=== PATIENT | female | born 1945 | race Caucasian/White ===

== ENCOUNTER → 2020-04-14 10:19 | Outpatient (BNVA) | payer OTHER, SELFPAY | PROVIDERS: PCP Family Medicine; Visit Provider Family Medicine | DX: E89.0 Postprocedural hypothyroidism (principal); I10 Essential (primary) hypertension; F32.9 Major depressive disorder, single episode, unspecified; M19.90 Unspecified osteoarthritis, unspecified site; G31.84 Mild cognitive impairment of uncertain or unknown etiology; Z13.220 Encounter for screening for lipoid disorders | CPT/HCPCS: 80053; 80061; 84443 ==

== ENCOUNTER → 2020-09-01 11:30 | Outpatient (BNVA) | payer OTHER, SELFPAY | PROVIDERS: PCP Family Medicine; Visit Provider Emergency Medicine | DX: E89.0 Postprocedural hypothyroidism (principal); R53.83 Other fatigue; R05 Cough; R52 Pain, unspecified | CPT/HCPCS: 84443; 87400; 87635 ==

== ENCOUNTER → 2020-11-23 09:46 | Outpatient (BNVA) | payer MEDICARE, SELFPAY | PROVIDERS: PCP Family Medicine; Visit Provider Family Medicine | DX: F32.9 Major depressive disorder, single episode, unspecified (principal); I10 Essential (primary) hypertension; J44.9 Chronic obstructive pulmonary disease, unspecified; E89.0 Postprocedural hypothyroidism; M19.90 Unspecified osteoarthritis, unspecified site; E66.9 Obesity, unspecified; Z71.89 Other specified counseling | CPT/HCPCS: 84439; 84443; 84481 ==

== ENCOUNTER → 2021-05-24 09:41 | Outpatient (BNVA) | payer MEDICARE, SELFPAY | PROVIDERS: PCP Family Medicine; Visit Provider Family Medicine | DX: F32.9 Major depressive disorder, single episode, unspecified (principal); I10 Essential (primary) hypertension; G47.00 Insomnia, unspecified; E89.0 Postprocedural hypothyroidism; Z23 Encounter for immunization; G47.01 Insomnia due to medical condition | CPT/HCPCS: 80053; 80061; 84439; 84443; 84481 ==

== ENCOUNTER → 2022-02-06 14:35 | Outpatient (BNVA) | payer MEDICARE, SELFPAY | PROVIDERS: PCP Family Medicine; Visit Provider Family Medicine | DX: F32.9 Major depressive disorder, single episode, unspecified (principal); I10 Essential (primary) hypertension; G47.00 Insomnia, unspecified; E89.0 Postprocedural hypothyroidism; G47.01 Insomnia due to medical condition; F43.9 Reaction to severe stress, unspecified | CPT/HCPCS: 80053; 84439; 84443; 84481 ==

== ENCOUNTER → 2022-05-10 10:19 | Outpatient (BNVA) | payer MEDICARE, SELFPAY | PROVIDERS: PCP Family Medicine; Visit Provider Family Medicine | DX: N39.0 Urinary tract infection, site not specified (principal); J44.9 Chronic obstructive pulmonary disease, unspecified; G47.01 Insomnia due to medical condition; R39.9 Unspecified symptoms and signs involving the genitourinary system | CPT/HCPCS: 81000 ==

== ENCOUNTER → 2022-07-09 10:59 | Outpatient (BNVA) | payer MEDICARE, SELFPAY | PROVIDERS: PCP Family Medicine; Visit Provider Family Medicine | DX: I10 Essential (primary) hypertension (principal); E89.0 Postprocedural hypothyroidism; N39.0 Urinary tract infection, site not specified | CPT/HCPCS: 80053; 80061; 81000; 84443 ==

== ENCOUNTER → 2023-04-15 14:49 | Outpatient (BNVA) | payer MEDICARE, SELFPAY | PROVIDERS: PCP Family Medicine; Visit Provider Family Medicine | DX: E89.0 Postprocedural hypothyroidism; I10 Essential (primary) hypertension | CPT/HCPCS: 80053; 80061; 84439; 84443; 84481 ==

== ENCOUNTER → 2024-04-07 14:36 | Outpatient (BNVA) | payer MEDICARE, SELFPAY | PROVIDERS: PCP Family Medicine; Visit Provider Nurse Practitioner Family | DX: I10 Essential (primary) hypertension (principal); G31.84 Mild cognitive impairment of uncertain or unknown etiology; E89.0 Postprocedural hypothyroidism; E03.9 Hypothyroidism, unspecified; R53.83 Other fatigue | CPT/HCPCS: 80053; 80061; 82607; 82746; 84439; 84443; 84481; 85025 ==

== ENCOUNTER 2024-07-01 07:46 | Inpatient (IN) | payer MEDICARE, SELFPAY ==
[2024-07-01] VITALS (18 sets, daily range): BP systolic 115–165; BP diastolic 64–112; PULSE 60–82; RESP 14–24; TEMP 36.3–36.8; O2SAT 88–96; BMI 35.2; BMI 33.5
--- NOTE | 2024-07-01 08:02 | ED_ITS ---
HPI - General Adult 2 General: Chief complaint: General Medical Stated complaint: Tremors/Nausea Time Seen by Provider: 07/01/24 07:52 History of Present Illness: 79-year-old female who presents to the e mergency room with complaint of tremor shortness of breath nausea and vomiting. She is extremely anxious. She has a history of mild dementia. She states when she went to bed last night she was feeling fine when she got up this morning she felt very unsteady on her feet. The original call for service to EMS was for shortness of breath. Patient admits shortness of breath denies chest pain denies abdominal pain. She does have a history of some dementia and a history of atrial fibrillation although is her rate is well-controlled. Patient states she felt fine last night at 9:00 when she went to bed. Associated symptoms: Deny chest pain, dyspnea or rash Related Data Previous Rx's Medication Instructions Recorded naproxen sodium 220 mg tablet 220 mg PO BID PRN pain 30 days #60 06/25/22 (Aleve) tabs arm brace (Wrist Brace) #2 ea 04/15/23 albuterol sulfate 90 mcg/actuation 2 puff inhalation Q6H PRN 03/23/24 aerosol inhaler shortness of breath or wheezing #8.5 grams amitriptyline 10 mg tablet 10 mg PO .at bedtime PRN insomnia 03/23/24 30 days #30 tabs budesonide-formoterol HFA 160 2 puff inhalation DAILY #10.2 grams 03/23/24 mcg-4.5 mcg/actuation aerosol inhaler (Symbicort) citalopram 40 mg tablet 40 mg PO DAILY 90 days #90 tabs 03/23/24 hydrochlorothiazide 12.5 mg tablet 12.5 mg PO QAM 90 days #90 tabs 03/23/24 levothyroxine 175 mcg capsule 175 mcg PO QDAY 90 days #90 caps 03/23/24 lisinopril 20 mg tablet 20 mg PO DAILY 90 days #90 tabs 03/23/24 Allergies Allergy/AdvReac Type Severity Reaction Status Date / Time No Known Allergies Allergy Verified 04/07/24 14:23 Review of Systems 2 Const: Denies: fever(s) or chills Card: Denies: chest pain Resp: Denies: dyspnea GI: Denies: abdominal pain : Denies: dysuria, urinary frequency or urinary urgency Musc: Denies: neck pain or back pain Skin/Breast: Denies: rash PFSH ED 2 PFSH: Medical History (Updated 07/01/24 @ 10:45 by Reginald Meneses DO) Arthritis Hypothyroidism Hx benign mass removed years ago. Essential hypertension Depression, controlled Surgical History H/O tubal ligation H/O thyroidectomy S/P appendectomy Family History Mother Cancer Social History Smoking and tobacco/nicotine status: never used tobacco/nicotine Quit status (tobacco/nicotine): has quit using Year quit tobacco: 2017 Former quit date comment: Patient had smoked since she was 14. Second hand smoke exposure: No Alcohol intake: never Substance/Drug Use: never Female Reproductive History: Spontaneous abortions: No Physical Exam 2 Const: GENERAL APPEARANCE: cooperative ORIENTATION/CONSCIOUSNESS: Yes awake, Yes oriented to person, Yes oriented to place and Yes oriented to time HENMT: COMMON NORMALS: normocephalic, atraumatic and hearing grossly normal bilaterally HEAD & SCALP: normocephalic and atraumatic Resp: COMMON NORMALS: normal respiratory effort, No retractions, No use of accessory muscles and clear to auscultation bilaterally AUSCULTATION: clear to auscultation bilaterally Cardio: COMMON NORMALS: regular rate, regular rhythm and No murmurs present (Cardio) RATE: regular rate RHYTHM: regular rhythm GI: COMMON NORMALS: Soft to palpation and No hepatosplenomegaly present A USCULTATION: Yes normoactive bowel sounds PALPATION: Yes Soft to palpation, No Tenderness to palpation present (GI), No Guarding due to palpation present (GI) and Yes No hepatosplenomegaly present Extremity: COMMON NORMALS: normal to inspection, capillary refill normal, no clubbing, cyanosis or edema, no calf tenderness and no pedal edema Neuro: SENSORIUM/ORIENTATION: Yes oriented to person, Yes oriented to place and Yes oriented to time Skin: COMMON NORMALS: no rashes or lesions noted GENERAL SKIN EXAM: no rashes or lesions noted Course 2 Vital Signs: Vital signs: Vital Signs Temperature 97.8 F 07/01/24 07:47 Pulse Rate 68 07/01/24 10:05 Respiratory Rate 14 07/01/24 10:05 Blood Pressure 151/75 07/01/24 10:05 Pulse Oximetry 96 07/01/24 10:05 Oxygen Delivery Me thod Nasal Cannula 07/01/24 07:47 Oxygen Flow Rate 2 07/01/24 07:47 MDM - General Adult Medical Decision Making Stroke assessment did initially, if we give her 1 point is that as a dysarthria she only has a single point on her stroke scale. She is hypoxic chest x-ray shows pneumonia will admit for pneumonia no leukocytosis questional was mild bladder infection there is just as many red send squamous. There is +1 leukocyte esterase. I do not think she has had a stroke you think she has pneumonia with hypoxia. Hospitalist will initiate antibiotics. Orders written. Lab Data 07/01/24 08:55 07/01/24 08:55 Radiology Impressions Chest X-Ray 07/01/24 08:03 Impression: 1. Patchy bilateral lower lobe opacities. 2. Atherosclerosis. Head CT 07/01/24 08:03 IMPRESSION: 1. No acute intracranial hemorrhage or edema. 2. Mild atrophy and small vessel disease. 3. Small remote lacunar infarcts in the internal and external capsules, bilateral. Laboratory Results WBC 8.24 10^3/uL (3.29-11.43) 07/01/24 08:55 RBC 5.15 10^6/uL (3.85-5.65) 07/01/24 08:55 Hgb 14.90 g/dL (11.27-16.99) 07/01/24 08:55 Hct 45.8 % (36-47) 07/01/24 08:55 MCV 88.9 fl (85-98) 07/01/24 08:55 MCH 28.9 pg (27-33) 07/01/24 08:55 MCHC 32.5 g/dL (30-55) 07/01/24 08:55 RDW 14.2 % (12.1-15.1) 07/01/24 08:55 Plt Count 218 10^3/cmm (157-399) 07/01/24 08:55 MPV 12.0 fL (7.4-10.4) H 07/01/24 08:55 Neut % (Auto) 72.4 % 07/01/24 08:55 Lymph % (Auto) 15.9 % 07/01/24 08:55 [place] % (Auto) 6.7 % 07/01/24 08:55 Eos % (Auto) 4.0 % 07/01/24 08:55 Baso % (Auto) 0.6 % 07/01/24 08:55 Neut # (Auto) 5.97 10^3/uL (1.8-7.7) 07/01/24 08:55 Lymph # (Auto) 1.3 10^3/uL (0.8-4.8) 07/01/24 08:55 [place] # (Auto) 0.6 10^3/uL (0.2-0.9) 07/01/24 08:55 Eos # (Auto) 0.3 10^3/uL (0.0-0.8) 07/01/24 08:55 Baso # (Auto) 0.1 10^3/uL (0.0-0.1) 07/01/24 08:55 Nucleated RBC % (auto) 0 % 07/01/24 08:55 Nucleated RBCs # 0.0 /100WBC 07/01/24 08:55 Specimen Type Arterial 07/01/24 08:56 Sample Site Radial, left 07/01/24 08:56 ABG pH 7.38 (7.35-7.45) 07/01/24 08:56 ABG pCO2 44.2 mmHg (35-45) 07/01/24 08:56 ABG pO2 75.7 mmHg (80.0-100.0) L 07/01/24 08:56 ABG PO2/FiO2 Ratio 270 07/01/24 08:56 ABG HCO3 26.3 mmol/L (22-26) H 07/01/24 08:56 ABG O2 Saturation 95.7 07/01/24 08:56 ABG Base Excess 0.8 mmol/L (-2.0-2.0) 07/01/24 08:56 Misha Test Pos 07/01/24 08:56 A-a O2 Gradient 9.0 mmHg (5-10) 07/01/24 08:56 Hematocrit 45.1 % (37-47) 07/01/24 08:56 Hgb O2 Saturation 94.6 % (95-100) L 07/01/24 08:56 Carboxyhemoglobin 0.7 %THgb (0.4-20.1) 07/01/24 08:56 Methemoglobin 0.5 % (0.4-1.5) 07/01/24 08:56 Total Hemoglobin 14.7 g/dL (12-16) 07/01/24 08:56 Sodium 138.0 mmol/L (131-143) 07/01/24 08:56 Potassium 4.5 mmol/L (3.5-5.0) 07/01/24 08:56 Glucose 118.0 mg/dL (70-115) H 07/01/24 08:56 Ionized Calcium 1.1 mmol/L (1.1-1.4) 07/01/24 08:56 O2 Delivery Device Nc 07/01/24 08:56 O2 Liters/Min 2.0 % 07/01/24 08:56 FiO2 28.0 % 07/01/24 08:56 Popcorn Candy Maker ID [place] 07/01/24 08:56 Sodium 134 mmol/L (136-145) L 07/01/24 08:55 Potassium 4.6 mmol/L (3.5-5.1) 07/01/24 08:55 Chloride 100 mmol/L (98-107) 07/01/24 08:55 Carbon Dioxide 24 mmol/L (22-29) 07/01/24 08:55 Anion Gap 14.6 (5-19) 07/01/24 08:55 BUN 18 mg/dL (8-23) 07/01/24 08:55 Creatinine 0.6 mg/dL (0.5-0.9) 07/01/24 08:55 GFR Calculation Not Reportable 07/01/24 08:55 Glucose 118 mg/dL (65-115) H 07/01/24 08:55 Calculated Osmolality 281 mOsm/kg (285-295) L 07/01/24 08:55 Lactic Acid 1.6 mmol/L (0.5-2.2) 07/01/24 08:55 Calcium 8.2 mg/dL (8.5-10.5) L 07/01/24 08:55 Magnesium 2.0 mg/dL (1.7-2.3) 07/01/24 08:55 Total Bilirubin 0.2 mg/dL (0.15-1.2) 07/01/24 08:55 AST 14 U/L (0-32) 07/01/24 08:55 ALT 9 U/L (0-33) 07/01/24 08:55 Alkaline Phosphatase 74 U/L (35-105) 07/01/24 08:55 Creatine Kinase 54 U/L (26-192) 07/01/24 08:55 Troponin T Baseline 7 ng/L (0-10) 07/01/24 08:55 NT-Pro-B Natriuret Pep 91 pg/mL (0-450) 07/01/24 08:55 Total Protein 7.2 g/dL (6.6-8.7) 07/01/24 08:55 Albumin 3.9 g/dL (3.5-5.2) 07/01/24 08:55 Globulin 3.3 g/dL (1.3-4.6) 07/01/24 08:55 Urine Color Yellow (Yellow) 07/01/24 08:43 Urine Appearance Cloudy (CLEAR) A 07/01/24 08:43 Urine pH 5.0 (5-7) 07/01/24 08:43 Ur Specific [place] 1.021 (1.005-1.030) 07/01/24 08:43 Urine Protein Negative (Negative) 07/01/24 08:43 Urine Glucose (UA) Negative (Normal) 07/01/24 08:43 Urine Ketones Negative (Negative) 07/01/24 08:43 Urine Blood Negative (Negative) 07/01/24 08:43 Urine Nitrate Negative (Negative) 07/01/24 08:43 Urine Bilirubin Negative (Negative) 07/01/24 08:43 Urine Urobilinogen 1.0 mg/dL (Negative) 07/01/24 08:43 Ur Leukocyte Esterase 1+ (Negative) A 07/01/24 08:43 Urine RBC 6-10 /hpf (0-2) 07/01/24 08:43 Urine WBC 11-20 /hpf (0-5) H 07/01/24 08:43 Ur Squamous Epith Cells 6-10 /hpf (0-5) 07/01/24 08:43 Amorphous Sediment Not Reportable 07/01/24 08:43 Urine Bacteria 1+ /hpf (NONE) H 07/01/24 08:43 Hyaline Casts 0.81 /lpf 07/01/24 08:43 Coronavirus (PCR) Negative (Negative) 07/01/24 08:08 Influenza A (PCR) Negative (Negative) 07/01/24 08:08 Influenza Type B (PCR) Negative (Negative) 07/01/24 08:08 RSV (PCR) Negative (Negative) 07/01/24 08:08 All radiology interpretation(s) finalized by discharge Discharge Plan Discharge Patient Disposition: Admitted As Inpatient Clinical Impression: Pneumonia, Mild dementia Condition: Stable Prescriptions: No Action naproxen sodium [Aleve] 220 mg tablet 220 mg PO BID PRN (Reason: pain) 30 Days Qty: 60 0RF (DME) Wrist Brace Misc See Rx Instructions .Route Qty: 2 0RF Rx Instructions: Right and left wrist brace for carpal tunnel albuterol sulfate 90 mcg/actuation HFA aerosol inhaler 2 puff inhalation Q6H PRN (Reason: shortness of breath or wheezing) Qty: 8.5 5RF amitriptyline 10 mg tablet 10 mg PO .at bedtime PRN (Reason: insomnia) 30 Days Qty: 30 2RF budesonide-formoterol [Symbicort] 160-4.5 mcg/actuation HFA aerosol inhaler 2 puff inhalation DAILY Qty: 10.2 5RF Rx Instructions: rinse mouth out after use 340B citalopram 40 mg tablet 40 mg PO DAILY 90 Days Qty: 90 3RF hydrochlorothiazide 12.5 mg tablet 12.5 mg PO QAM 90 Days Qty: 90 3RF levothyroxine 175 mcg capsule 175 mcg PO QDAY 90 Days Qty: 90 3RF lisinopril 20 mg tablet 20 mg PO DAILY 90 Days Qty: 90 3RF Referrals: Lyn Alvarenga MD [Primary Care Provider] - Coding Level of Care Code ED Pre School Manager for Opal Stephenson NIH stroke score NIHSS Level Of Consciousness - 1a: 0 Level Of Consciousness Questions - 1b: Both Correct Level Of Consciousness Commands - 1c: Both Correct Best Gaze - 2: Normal Visual [place]o - 3: No Visual Loss Facial Palsy - 4: Normal Motor Arm Right - 5: No Drift Motor Arm Left - 5: No Drift Motor Leg Right - 6: No Drift Motor Leg Left - 6: No Drift Limb Ataxia - 7: Absent Sensory - 8: Normal Best Language - 9: No Aphasia Dysarthia - 10: Mild/Moderate Dysarthia Extinction And Inattention - 11: 0 Score Total Score: 1
--- NOTE | 2024-07-01 08:03 | ECG_ITS ---
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 Measurements Intervals [place] Rate: 65 P: 171 OK: 164 QRS: -47 QRSD: 112 T: 64 QT: 389 QTc: 407 Interpretive Statements ECTOPIC ATRIAL RHYTHM LEFT AXIS DEVIATION [QRS AXIS < -30] MODERATE INTRAVENTRICULAR CONDUCTION DELAY [110+ ms QRS DURATION] No previous ECG available for comparison Electronically Signed On 07-02-2024 21:45:52 BEATER ROOM HELPER by Ryan Steele M.D. [email or web address]
--- NOTE | 2024-07-01 08:03 | XR_ITS ---
WS: [id number] Portable AP upright chest, 07/01/2024 Clinical Data: dyspnea/cough Comparison: None. Findings: No nodules, masses or effusions are seen. There are patchy bilateral lower lobe opacities w hich may represent atelectasis, pneumonia and/or effusion. The heart is normal. The pulmonary vascula rity is not increased. No pneumothorax is seen. The aortic arch shows tortuosity. There is osteoarth ritis of both shoulders. Monitor leads are on the chest wall. XR/XR chest 1V portable [id number] Impression: 1. Patchy bilateral lower lobe opacities. 2. Atherosclerosis.
--- NOTE | 2024-07-01 08:03 | CT_ITS ---
WS: [id number] CT HEAD NONCONTRAST HISTORY: Tremor nausea vomiting TECHNIQUE: Contiguous axial imaging performed through the brain. Bone and soft tissue windows. Sagitt al and coronal reformats reviewed. All CT scans at [facility] use at least one of these dose optimization techniques: automated exposure control; mA and/or kV adjustment per patient size (includ es targeted exams where dose is matched to clinical indication); or iterative reconstruction. DLP: 1023.80 mGy.cm COMPARISON: None available. No acute intracranial hemorrhage, midline shift or mass effect. Mild atrophy and small vessel disease. Small bilateral lacunar infarcts in the anterior limb of each internal capsule. Bilateral external capsule remote lacunar infarcts. Ventricles: Normal size with no hydrocephalus. Paranasal sinuses: As visualized are clear. Mastoid air cells: Well pneumatized. Cerumen in the RIGHT external auditory canal. Calvarium and scalp: Skull is intact with no soft tissue edema or swelling. CT/CT head wo con* [id number] IMPRESSION: 1. No acute intracranial hemorrhage or edema. 2. Mild atrophy and small vessel disease. 3. Small remote lacunar infarcts in the internal and external capsules, bilate ral.
[2024-07-01 09:00] LABS: Bilirubin Urine Negative (Negative); Blood Urine Negative (Negative); Glucose Urine UA Negative (Normal); Ketones Urine Negative (Negative); Leukocyte Esterase Urine 1+ (Negative); Nitrate Urine Negative (Negative); Protein Urine Negative (Negative); Specific Gravity, Urine 1.021 (1.005-1.030); Urine Appearance Cloudy (CLEAR); Urine Color Yellow (Yellow)
[2024-07-01 09:02] LABS: ABG PCO2 44.2 mmHg (35-45); ABG PH Result 7.38 (7.35-7.45); Arterial Blood Gas Hematocrit 45.1 % (37-47); Base Excess ABG 0.8 mmol/L (-2.0-2.0); Blood Gas Allen Test Pos; Blood Gas Operator Identificat MONRO; Blood Gas Sample Site Radial, left; Blood Gas Sample Type Arterial; Carboxyhemoglobin 0.7 %THgb (0.4-20.1); HCO3 ABG 26.3 mmol/L (22-26); HGB O2 Sat 94.6 % (95-100); Ionized Calcium Level - ABG 1.1 mmol/L (1.1-1.4); Methemoglobin 0.5 % (0.4-1.5); Oxygen Device NC; Oxygen Saturation ABG 95.7; PO2 ABG 75.7 mmHg (80.0-100.0); PO2 FiO2 Ratio Arterial Blood 270; Potassium Level - ABG 4.5 mmol/L (3.5-5.0); Total Hemoglobin 14.7 g/dL (12-16)
[2024-07-01 09:03] LABS: Add Urine Microscopic? YES; Bacteria Urine 1+ /hpf; Hyaline Casts Urine 0.81 /lpf
[2024-07-01 09:04] LABS: Covid PCR NEGATIVE (Negative); Influenza A NEGATIVE (Negative); Influenza B NEGATIVE (Negative); Respiratory Syncytial Virus Ce NEGATIVE (Negative)
[2024-07-01 09:11] LABS: Add Urine Culture? No
[2024-07-01 09:18] LABS: Basophils # 0.1 10^3/uL (0.0-0.1); Basophils % 0.6 %; Eosinophils # 0.3 10^3/uL (0.0-0.8); Hematocrit 45.8 % (36-47); Lymphocytes # 1.3 10^3/uL (0.8-4.8); Lymphocytes % 15.9 %; Mean Corpuscular HGB Conc 32.5 g/dL (30-55); Mean Corpuscular Hemoglobin 28.9 pg (27-33); Mean Corpuscular Volume 88.9 fl (85-98); Monocytes # 0.6 10^3/uL (0.2-0.9); Monocytes % 6.7 %; Neutrophils # 5.97 10^3/uL (1.8-7.7); Neutrophils % 72.4 %; Nucleated Red Blood Cells % 0 %; Platelet Count 218 10^3/cmm (157-399); Red Blood Count 5.15 10^6/uL (3.85-5.65); Red Cell Distribution Width 14.2 % (12.1-15.1); White Blood Count 8.24 10^3/uL (3.29-11.43)
[2024-07-01 09:41] LABS: Lactic Sepsis W/Reflex 1.6 mmol/L (0.5-2.2)
[2024-07-01 09:42] LABS: Alanine Aminotransferase 9 U/L (0-33); Albumin Level 3.9 g/dL (3.5-5.2); Alkaline Phosphatase 74 U/L (35-105); Anion Gap 14.6 (5-19); Aspartate Amino Transferase 14 U/L (0-32); Blood Urea Nitrogen 18 mg/dL (8-23); Calcium 8.2 mg/dL (8.5-10.5); Carbon Dioxide 24 mmol/L (22-29); Chloride 100 mmol/L (98-107); Creatine Phosphokinase 54 U/L (26-192); Creatinine Clr Calc Pharmacy 59.8064; Globulin 3.3 g/dL (1.3-4.6); Glucose 118 mg/dL (65-115); Osmolality Calculated 281 mOsm/kg (285-295); Potassium 4.6 mmol/L (3.5-5.1); Sodium 134 mmol/L (136-145); Total Bilirubin 0.2 mg/dL (0.15-1.2); Total Protein 7.2 g/dL (6.6-8.7)
[2024-07-01 09:46] LABS: Troponin(5th) Baseline 7 ng/L (0-10)
--- NOTE | 2024-07-01 10:03 | ECG_ITS ---
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
[2024-07-01 10:04] LABS: NT Pro B Type Natriuretic Pept 91 pg/mL (0-450)
--- NOTE | 2024-07-01 11:46 | P.HP_ITS ---
Providers/Chief Complaint 2 Admitting Physician: Adarsh Eason MD Primary Care Provider: Lyn Alvarenga MD Chief Complaint: Tremors/Nausea History of Present Illness Kaylynn Alvarenga is a 79 year old female with history of dementia, COPD, hypertension and hypothyroidism that presents to the emergency department with complaints of tremor, shortness of breath, stuttering, anxiousness, and cough. There are some notes that she had some nausea and vomiting but she denies this for me. Daughters are present during the interview. She lives with her granddaughter who helps with her daily care secondary to her memory deficits. Denies any chest or abdominal pain. No fevers been noted. No ill contacts. Denies any blood in stool. She no longer smokes. Review of Systems 2 General: Reports: 10 or more systems reviewed and unremarkable except in HPI and below Card: Denies: chest pain Resp: Reports: dyspnea and non-productive cough GI: Denies: abdominal pain, hematochezia or melena Medications/Allergies Home Medications Medication Instructions Recorded Confirmed Last Taken Type naproxen sodium 220 mg tablet 220 mg PO BID PRN pain 30 days #60 06/25/22 07/01/24 Unknown Rx (Aleve) tabs arm brace (Wrist Brace) #2 ea 04/15/23 07/01/24 Unknown Rx albuterol sulfate 90 mcg/actuation 2 puff inhalation Q6H PRN 03/23/24 07/01/24 Unknown Rx aerosol inhaler shortness of breath or wheezing #8.5 grams amitriptyline 10 mg tablet 10 mg PO .at bedtime PRN insomnia 03/23/24 07/01/24 Unknown Rx 30 days #30 tabs budesonide-formoterol HFA 160 2 puff inhalation DAILY #10.2 grams 03/23/24 07/01/24 Unknown Rx mcg-4.5 mcg/actuation aerosol inhaler (Symbicort) citalopram 40 mg tablet 40 mg PO DAILY 90 days #90 tabs 03/23/24 07/01/24 06/30/24 Rx hydrochlorothiazide 12.5 mg tablet 12.5 mg PO QAM 90 days #90 tabs 03/23/24 07/01/24 06/30/24 Rx levothyroxine 175 mcg capsule 175 mcg PO QDAY 90 days #90 caps 03/23/24 07/01/24 06/30/24 Rx lisinopril 20 mg tablet 20 mg PO DAILY 90 days #90 tabs 03/23/24 07/01/24 06/30/24 Rx Allergies Allergy/AdvReac Type Severity Reaction Status Date / Time No Known Allergies Allergy Verified 04/07/24 14:23 PFSH Acute 2 PFSH: Medical History (Updated 07/01/24 @ 13:56 by Adarsh Eason MD) Mild dementia Mild chronic obstructive pulmonary disease Arthritis Hypothyroidism Hx benign mass removed years ago. Essential hypertension Depression, controlled Surgical History H/O tubal ligation H/O thyroidectomy S/P appendectomy Family History Mother Cancer Social History Smoking and tobacco/nicotine status: never used tobacco/nicotine Quit status (tobacco/nicotine): has quit using Year quit tobacco: 2017 Former quit date comment: Patient had smoked since she was 14. Second hand smoke exposure: No Alcohol intake: never Substance/Drug Use: never Female Reproductive History: Spontaneous abortions: No Vitals/I&O/Wt Last Vital Signs Temp 97.8 F 07/01/24 07:47 Pulse 62 07/01/24 11:35 Resp 15 07/01/24 11:35 BP 165/90 07/01/24 11:35 Pulse Ox 92 07/01/24 11:35 O2 Del Method Nasal Cannula 07/01/24 07:47 O2 Flow Rate 2 07/01/24 07:47 Weight last 48 hrs Weight 90.265 kg Physical Exam 2 Narrative: General exam is a white female, who stutters significantly when I walk in the room. As I visit with her longer stuttering can go completely away for certain sentences, and anxiety seems to wane. No significant tremor is noted. Neuro: No obvious focal deficits. No facial droop, no slurred speech, no focal weakness. HEENT: Atraumatic normocephalic. Oropharynx clear Neck is supple no lymphadenopathy thyromegaly Cardiovascular regular rate and rhythm without murmur Lungs diminished breath sounds bilaterally occasional wheeze. No crackles. Abdomen is soft nontender positive bowel sounds. No obvious organomegaly exam is deferred Extremities no cyanosis, or edema, cap refill brisk Skin no rash Data 07/01/24 08:55 07/01/24 08:55 Other Labs: ABG demonstrates pH 7.38, pCO2 44, pO2 76 on 2 L LFTs are normal Calcium 8.2, albumin 3.9 Troponin 7 CK 54 Urinalysis with 11-20 whites, 6-10 reds, 1+ leukocyte Estrace Coronavirus, influenza, RSV all negative Head CT which I also reviewed demonstrated no acute findings, some small remote lacunar infarcts Chest x-ray which I reviewed demonstrates bibasilar infiltrates, atherosclerotic disease. EKG which I reviewed demonstrates quite a bit of artifact, sinus rhythm, left axis deviation, no acute changes. I have ordered a BNP. Micro: Microbiology 07/01/24 08:57 Blood Culture - Preliminary Blood SPECIMEN COLLECTED 07/01/24 08:55 Blood Culture - Preliminary Blood SPECIMEN COLLECTED A&P Assessment and plan (1) Pneumonia: Patient presents with evidence of pneumonia, and hypoxemia Initiate Rocephin and azithromycin Sputum culture Oxygen as needed, titrate off as tolerated CBC and BMP in the morning BNP and troponin were checked and normal ST consult. Patient indicates some history of dysphagia. (2) Hypoxemia: See above (3) COPD with acute exacerbation: Patient with acute COPD exacerbation Prednisone 40 mg a day DuoNeb every 6 hours Budesonide twice daily (4) Stuttering: Patient presents with acute onset of stuttering, with no other impairments to suggest neurologic event such as CVA. Initial CT negative Speech therapy consultation Plan History of depression. Change Celexa to Zoloft secondary to potential medication interactions Other medical problems as outlined in past medical history Some confusion and CODE STATUS in regards to daughter who is in the room and power of mergers and acquisitions attorney which is granddaughter. Patient has a power of mergers and acquisitions attorney graphic document and they will try to get this for me. For now full code. Patient herself indicated initially while I was in the room that it would be okay to try but not very long. However, she does have history of significant dementia and I am not sure of her overall capacity during this brief interaction. Attestations 2 Medical Necessity Statement*: Will need greater than 2 midnight stay for evaluation and treatment of pneumonia with hypoxemia Diagnoses Pneumonia J18.9 Hypoxemia R09.02 COPD with acute exacerbation J44.1 Stuttering F80.81 Time Spent (min) 54
[2024-07-01 11:56] LABS: Troponin 5 2HR 6.07 ng/L (0-10)
[2024-07-01 11:59] LABS: Troponin 5 2HR Delta -0.93 ABS# (0-10)
[2024-07-01 12:58] LABS: NT Pro B Type Natriuretic Pept 96 pg/mL (0-450); Thyroid Stimulating Hormone 0.55 uIU/mL (0.27-4.20)
[2024-07-01] MEDS: AZITHROMYCIN ADD-Vantage 500 MG in 0.9% NaCl ADD-Vantage 250 ML 250 MG IV (14:19)
[2024-07-01] MEDS: enoxaparin 40 mg/0.4 mL Syringe SUBCUT (14:21)
[2024-07-01] MEDS: cefTRIAXone 1,000 mg SDV 1000 MG IVP (14:22)
[2024-07-01] MEDS: levothyroxine 175 mcg Tablet PO (14:22)
[2024-07-01] MEDS: predniSONE 20 mg Tablet 40 MG PO (14:22)
--- NOTE | 2024-07-01 14:26 | ECG_ITS ---
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
[2024-07-01] MEDS: ipratropium-albuterol 3 mL Neb INHALATION ×2 (14:29→19:58)
[2024-07-01] MEDS: hyDRALAzine 10 mg Tablet PO (14:48)
[2024-07-01] MEDS: acetaminophen 325 mg Tablet 650 MG PO (18:01)
[2024-07-01] MEDS: budesonide 0.5 mg/2 mL Neb INHALATION (19:58)
[2024-07-02] VITALS (13 sets, daily range): BP systolic 115–147; BP diastolic 61–71; PULSE 60–93; RESP 16–18; TEMP 36.3–36.8; O2SAT 90–99
[2024-07-02] MEDS: ipratropium-albuterol 3 mL Neb INHALATION ×4 (02:54→20:27)
[2024-07-02 05:55] LABS: Basophils % 0.3 %; Eosinophils % 0.3 %; Hematocrit 42.5 % (36-47); Lymphocytes # 1.3 10^3/uL (0.8-4.8); Lymphocytes % 14.7 %; Mean Corpuscular Hemoglobin 29.2 pg (27-33); Mean Corpuscular Volume 91.4 fl (85-98); Monocytes # 0.7 10^3/uL (0.2-0.9); Monocytes % 7.6 %; Neutrophils % 76.6 %; Nucleated Red Blood Cells % 0 %; Platelet Count 208 10^3/cmm (157-399); Red Blood Count 4.65 10^6/uL (3.85-5.65); Red Cell Distribution Width 14.5 % (12.1-15.1); White Blood Count 8.87 10^3/uL (3.29-11.43)
[2024-07-02 06:21] LABS: Anion Gap 14.2 (5-19); Blood Urea Nitrogen 20 mg/dL (8-23); Calcium 8.1 mg/dL (8.5-10.5); Carbon Dioxide 24 mmol/L (22-29); Chloride 106 mmol/L (98-107); Creatinine Clr Calc Pharmacy 59.4047; Glucose 154 mg/dL (65-115); Magnesium 2.1 mg/dL (1.7-2.3); Osmolality Calculated 296 mOsm/kg (285-295); Potassium 4.2 mmol/L (3.5-5.1); Sodium 140 mmol/L (136-145)
[2024-07-02] MEDS: lisinopril 20 mg Tablet PO (07:59)
[2024-07-02] MEDS: levothyroxine 175 mcg Tablet PO (07:59)
[2024-07-02] MEDS: sertraline 50 mg Tablet 25 MG PO (07:59)
[2024-07-02] MEDS: aspirin 81 mg EC Tablet PO (08:00)
[2024-07-02] MEDS: predniSONE 20 mg Tablet 40 MG PO (08:00)
[2024-07-02] MEDS: budesonide 0.5 mg/2 mL Neb INHALATION ×2 (08:53→20:26)
--- NOTE | 2024-07-02 09:01 | PM.PN ---
Subjective Subjective: Kaylynn reports she is feeling better today. She reports still a little bit of cough. Still on 2 L of oxygen. No vomiting, or abdominal pain. States her speech is much better. Medications: Reviewed: Yes Vitals/I&O/Wt Last Vital Signs Temp 97.5 F L 07/02/24 07:29 Pulse 81 07/02/24 07:29 Resp 16 07/02/24 07:29 BP 130/67 07/02/24 07:29 Pulse Ox 93 07/02/24 07:29 O2 Del Method Nasal Cannula 07/02/24 07:29 O2 Flow Rate 2 07/02/24 02:54 07/01/24 07/02/24 07/02/24 22:59 06:59 14:59 Intake Total 1210 / 1210 700 / 1910 Balance 1210 / 1210 700 / 1910 Weight last 48 hrs Weight 89.131 kg Weight 85.729 kg Weight 90.265 kg Physical Exam Narrative: General exam is a white female, calm with hardly any stuttering currently. Neuro: No obvious focal deficits. No facial droop, no slurred speech, no focal weakness. Neck is supple no lymphadenopathy thyromegaly Cardiovascular regular rate and rhythm without murmur Lungs diminished breath sounds bilaterally occasional wheeze. No crackles. Abdomen is soft nontender positive bowel sounds. No obvious organomegaly Extremities no cyanosis, or edema, cap refill brisk Data 07/02/24 05:12 07/02/24 05:12 Micro: Microbiology 07/01/24 08:57 Blood Culture - Preliminary Blood SPECIMEN COLLECTED 07/01/24 08:55 Blood Culture - Preliminary Blood SPECIMEN COLLECTED A&P Assessment and plan (1) Pneumonia: Patient presents with evidence of pneumonia, and hypoxemia Continue Rocephin and azithromycin Try to wean off oxygen today. Sputum culture Oxygen as needed, titrate off as tolerated CBC and BMP in the morning BNP and troponin were checked and normal ST consult. Patient indicates some history of dysphagia. (2) Hypoxemia: See above (3) COPD with acute exacerbation: Patient with acute COPD exacerbation Continue prednisone 40 mg a day Continue DuoNeb every 6 hours Continue budesonide twice daily (4) Stuttering: Patient presents with acute onset of stuttering, with no other impairments to suggest neurologic event such as CVA. Initial CT negative Speech therapy consultation Secondary to some lacunar infarcts seen on CT, low-dose aspirin was initiated. Plan History of depression. Change Celexa to Zoloft secondary to potential medication interactions Other medical problems as outlined in past medical history Some confusion and CODE STATUS in regards to daughter who is in the room and power of compliance attorney which is granddaughter. Patient has a power of compliance attorney graphic document and they will try to get this for me. For now full code. Patient herself indicated initially while I was in the room that it would be okay to try but not very long. However, she does have history of significant dementia and I am not sure of her overall capacity during this brief interaction. Anticipate discharge home tomorrow. Attestations Medical Necessity Statement*: Needs continued hospitalization for treatment of pneumonia with IV antibiotics in this patient still requiring oxygen Diagnoses Pneumonia J18.9 Hypoxemia R09.02 COPD with acute exacerbation J44.1 Stuttering F80.81 Time Spent (min) 25
[2024-07-02] MEDS: cefTRIAXone 1,000 mg SDV 1000 MG IVP (12:41)
[2024-07-02] MEDS: AZITHROMYCIN ADD-Vantage 500 MG in 0.9% NaCl ADD-Vantage 250 ML 250 MG IV (12:42)
[2024-07-02] MEDS: enoxaparin 40 mg/0.4 mL Syringe SUBCUT (12:42)
[2024-07-03] VITALS (7 sets, daily range): BP systolic 110–126; BP diastolic 60–72; PULSE 60–79; RESP 14–16; TEMP 36.3–36.7; O2SAT 94–96
[2024-07-03] MEDS: ipratropium-albuterol 3 mL Neb INHALATION ×2 (02:04→08:12)
[2024-07-03] MEDS: budesonide 0.5 mg/2 mL Neb INHALATION (08:12)
--- NOTE | 2024-07-03 08:31 | P.DS_ITS ---
Discharge Providers Date of Admission: 07/01/24 11:43 Date of Discharge: July 03, 2024 Attending Provider at Admission: Adarsh Eason MD Attending Provider at Discharge: Adarsh Eason MD Primary Care Provider: Lyn Alvarenga MD Diagnoses at Discharge Discharge Diagnosis (1) Pneumonia: Status: Acute (2) Hypoxemia: Status: Acute (3) COPD with acute exacerbation: Status: Acute (4) Stuttering: Status: Acute Reason for Visit Reason for Visit: Tremors/Nausea Hospital Course Hospital Course Kaylynn is an 79-year-old white female who presented to the emergency department short of breath, with coughing, some shaking and stuttering. She had no neurologic impairment, slurred speech, word finding difficulty, or obvious cranial nerve abnormality. She was found to have pneumonia on x-ray, and hypoxia. She was started on IV antibiotics for community-acquired pneumonia, and secondary to clinical exam consistent with COPD exacerbation steroids, and breathing treatments. In regards to her stuttering, the emergency department physician had done a CT head which demonstrated some old lacunar infarcts. She was started on aspirin 81 mg daily for this. When I visited with her during exam, stuttering would go away as she was calm to. This was thought likely to be secondary to underlying anxiety. She had gradual improvement during her hospital course and had significant resolution of stuttering when she was not pressured. I did change her Celexa to Zoloft during her hospital course secondary to potential interactions with Celexa with antibiotics and other medications. I discussed with family and they are okay continuing Zoloft as a discharge medication. At discharge she was able to be off oxygen on room air, denied any significant complaints, wished to go home, and reported her speech was much improved. She was able to ask questions and agreed with the plan, and I discussed the plan with her family as well. Physical Exam Narrative: General Exam no distress Neck is supple Cardiovascular regular rate and rhythm Lungs clear Abdomen soft Extremities no cyanosis clubbing or edema Discharge Data Studies Completed and Pending Completed Studies During Hospitalization Category Date Time Status CT head wo con* [id number] Stat Cat Scan 07/01/24 08:03 Completed XR chest 1V portable [id number] Stat Exams 07/01/24 08:03 Completed Pending at discharge Category Date Time Status Blood Culture Stat Lab 07/01/24 08:57 Results Sputum Culture and Gram Stain Routine Lab 07/01/24 12:16 Uncollected Urine Culture Stat Lab 07/01/24 08:45 Received Radiology Impressions Chest X-Ray 07/01/24 08:03 Impression: 1. Patchy bilateral lower lobe opacities. 2. Atherosclerosis. Head CT 07/01/24 08:03 IMPRESSION: 1. No acute intracranial hemorrhage or edema. 2. Mild atrophy and small vessel disease. 3. Small remote lacunar infarcts in the internal and external capsules, bilateral. Laboratory Results WBC 8.87 10^3/uL (3.29-11.43) 07/02/24 05:12 RBC 4.65 10^6/uL (3.85-5.65) 07/02/24 05:12 Hgb 13.60 g/dL (11.27-16.99) 07/02/24 05:12 Hct 42.5 % (36-47) 07/02/24 05:12 MCV 91.4 fl (85-98) 07/02/24 05:12 MCH 29.2 pg (27-33) 07/02/24 05:12 MCHC 32.0 g/dL (30-55) 07/02/24 05:12 RDW 14.5 % (12.1-15.1) 07/02/24 05:12 Plt Count 208 10^3/cmm (157-399) 07/02/24 05:12 MPV 12.0 fL (7.4-10.4) H 07/02/24 05:12 Neut % (Auto) 76.6 % 07/02/24 05:12 Lymph % (Auto) 14.7 % 07/02/24 05:12 Thayer % (Auto) 7.6 % 07/02/24 05:12 Eos % (Auto) 0.3 % 07/02/24 05:12 Baso % (Auto) 0.3 % 07/02/24 05:12 Neut # (Auto) 6.80 10^3/uL (1.8-7.7) 07/02/24 05:12 Lymph # (Auto) 1.3 10^3/uL (0.8-4.8) 07/02/24 05:12 Thayer # (Auto) 0.7 10^3/uL (0.2-0.9) 07/02/24 05:12 Eos # (Auto) 0.0 10^3/uL (0.0-0.8) 07/02/24 05:12 Baso # (Auto) 0.0 10^3/uL (0.0-0.1) 07/02/24 05:12 Nucleated RBC % (auto) 0 % 07/02/24 05:12 Nucleated RBCs # 0.0 /100WBC 07/02/24 05:12 Specimen Type Arterial 07/01/24 08:56 Sample Site Radial, left 07/01/24 08:56 ABG pH 7.38 (7.35-7.45) 07/01/24 08:56 ABG pCO2 44.2 mmHg (35-45) 07/01/24 08:56 ABG pO2 75.7 mmHg (80.0-100.0) L 07/01/24 08:56 ABG PO2/FiO2 Ratio 270 07/01/24 08:56 ABG HCO3 26.3 mmol/L (22-26) H 07/01/24 08:56 ABG O2 Saturation 95.7 07/01/24 08:56 ABG Base Excess 0.8 mmol/L (-2.0-2.0) 07/01/24 08:56 Misha Test Pos 07/01/24 08:56 A-a O2 Gradient 9.0 mmHg (5-10) 07/01/24 08:56 Hematocrit 45.1 % (37-47) 07/01/24 08:56 Hgb O2 Saturation 94.6 % (95-100) L 07/01/24 08:56 Carboxyhemoglobin 0.7 %THgb (0.4-20.1) 07/01/24 08:56 Methemoglobin 0.5 % (0.4-1.5) 07/01/24 08:56 Total Hemoglobin 14.7 g/dL (12-16) 07/01/24 08:56 Sodium 138.0 mmol/L (131-143) 07/01/24 08:56 Potassium 4.5 mmol/L (3.5-5.0) 07/01/24 08:56 Glucose 118.0 mg/dL (70-115) H 07/01/24 08:56 Ionized Calcium 1.1 mmol/L (1.1-1.4) 07/01/24 08:56 O2 Delivery Device Nc 07/01/24 08:56 O2 Liters/Min 2.0 % 07/01/24 08:56 FiO2 28.0 % 07/01/24 08:56 Industrial Truck Mechanic ID Mark 07/01/24 08:56 Sodium 140 mmol/L (136-145) 07/02/24 05:12 Potassium 4.2 mmol/L (3.5-5.1) 07/02/24 05:12 Chloride 106 mmol/L (98-107) 07/02/24 05:12 Carbon Dioxide 24 mmol/L (22-29) 07/02/24 05:12 Anion Gap 14.2 (5-19) 07/02/24 05:12 BUN 20 mg/dL (8-23) 07/02/24 05:12 Creatinine 0.7 mg/dL (0.5-0.9) 07/02/24 05:12 GFR Calculation Not Reportable 07/02/24 05:12 Glucose 154 mg/dL (65-115) H 07/02/24 05:12 Calculated Osmolality 296 mOsm/kg (285-295) H 07/02/24 05:12 Lactic Acid 1.6 mmol/L (0.5-2.2) 07/01/24 08:55 Calcium 8.1 mg/dL (8.5-10.5) L 07/02/24 05:12 Magnesium 2.1 mg/dL (1.7-2.3) 07/02/24 05:12 Total Bilirubin 0.2 mg/dL (0.15-1.2) 07/01/24 08:55 AST 14 U/L (0-32) 07/01/24 08:55 ALT 9 U/L (0-33) 07/01/24 08:55 Alkaline Phosphatase 74 U/L (35-105) 07/01/24 08:55 Creatine Kinase 54 U/L (26-192) 07/01/24 08:55 Troponin T Baseline 7 ng/L (0-10) 07/01/24 08:55 Troponin T 120 Minute 6.07 ng/L (0-10) 07/01/24 11:20 Delta Troponin T -0.93 ABS# (0-10) L 07/01/24 11:20 Troponin T Hi Sens 6Hr 6.00 ng/L (0-10) 07/01/24 14:12 Troponin T Hi Sens 6Hr Delta -1.00 ng/L (0-12) L 07/01/24 14:12 NT-Pro-B Natriuret Pep 96 pg/mL (0-450) 07/01/24 11:20 Total Protein 7.2 g/dL (6.6-8.7) 07/01/24 08:55 Albumin 3.9 g/dL (3.5-5.2) 07/01/24 08:55 Globulin 3.3 g/dL (1.3-4.6) 07/01/24 08:55 TSH 0.55 uIU/mL (0.27-4.20) 07/01/24 11:20 Urine Color Yellow (Yellow) 07/01/24 08:43 Urine Appearance Cloudy (CLEAR) A 07/01/24 08:43 Urine pH 5.0 (5-7) 07/01/24 08:43 Ur Specific [place] 1.021 (1.005-1.030) 07/01/24 08:43 Urine Protein Negative (Negative) 07/01/24 08:43 Urine Glucose (UA) Negative (Normal) 07/01/24 08:43 Urine Ketones Negative (Negative) 07/01/24 08:43 Urine Blood Negative (Negative) 07/01/24 08:43 Urine Nitrate Negative (Negative) 07/01/24 08:43 Urine Bilirubin Negative (Negative) 07/01/24 08:43 Urine Urobilinogen 1.0 mg/dL (Negative) 07/01/24 08:43 Ur Leukocyte Esterase 1+ (Negative) A 07/01/24 08:43 Urine RBC 6-10 /hpf (0-2) 07/01/24 08:43 Urine WBC 11-20 /hpf (0-5) H 07/01/24 08:43 Ur Squamous Epith Cells 6-10 /hpf (0-5) 07/01/24 08:43 Amorphous Sediment Not Reportable 07/01/24 08:43 Urine Bacteria 1+ /hpf (NONE) H 07/01/24 08:43 Hyaline Casts 0.81 /lpf 07/01/24 08:43 Coronavirus (PCR) Negative (Negative) 07/01/24 08:08 Influenza A (PCR) Negative (Negative) 07/01/24 08:08 Influenza Type B (PCR) Negative (Negative) 07/01/24 08:08 RSV (PCR) Negative (Negative) 07/01/24 08:08 Vitals Last Vital Signs Temp 97.3 F L 07/03/24 07:57 Pulse 70 07/03/24 08:00 Resp 16 07/03/24 08:00 BP 123/66 07/03/24 07:57 Pulse Ox 95 07/03/24 08:00 O2 Del Method Room Air 07/03/24 08:00 O2 Flow Rate 2 07/02/24 20:25 Discharge Plan Discharge Patient Disposition: Home Condition: Stable Prescriptions: New prednisone 20 mg Tablet 40 mg PO DAILY Qty: 6 0RF sertraline 50 mg Tablet 25 mg PO DAILY Qty: 30 0RF aspirin 81 mg Tablet,Delayed Release (Dr/Ec) 81 mg PO DAILY Qty: 30 0RF cefdinir 300 mg capsule 300 mg PO BID 7 Days Qty: 14 0RF Continued (DME) Wrist Brace Misc See Rx Instructions .Route Qty: 2 0RF Rx Instructions: Right and left wrist brace for carpal tunnel albuterol sulfate 90 mcg/actuation HFA aerosol inhaler 2 puff inhalation Q6H PRN (Reason: shortness of breath or wheezing) Qty: 8.5 5RF amitriptyline 10 mg tablet 10 mg PO .at bedtime PRN (Reason: insomnia) 30 Days Qty: 30 2RF budesonide-formoterol [Symbicort] 160-4.5 mcg/actuation HFA aerosol inhaler 2 puff inhalation DAILY Qty: 10.2 5RF Rx Instructions: rinse mouth out after use 340B hydrochlorothiazide 12.5 mg tablet 12.5 mg PO QAM 90 Days Qty: 90 3RF levothyroxine 175 mcg capsule 175 mcg PO QDAY 90 Days Qty: 90 3RF lisinopril 20 mg tablet 20 mg PO DAILY 90 Days Qty: 90 3RF Discontinued naproxen sodium [Aleve] 220 mg tablet 220 mg PO BID PRN (Reason: pain) 30 Days Qty: 60 0RF citalopram 40 mg tablet 40 mg PO DAILY 90 Days Qty: 90 3RF Discharge Orders: Discharge Order (Routine); Ordered 07/03/24 Ordered By: Adarsh Eason Referrals: Lyn Alvarenga MD [Primary Care Provider] - 4-7 days Discharge Diet: Cardiac Discharge Activity: Increase activity as tolerated Patient Instructions: Opioid Safety Activity Restrictions/Additional Instructions: Take all medicine as prescribed Follow-up with your primary care provider 4 to 7 days Note your Celexa has been discontinued, Zoloft initiated Take no anti-inflammatories You have been started on aspirin 81 mg daily Prednisone, cefdinir as directed Return for any concerns Nursing to make sure the patient received 1 dose of oral Zithromax prior to discharge. Discharge Attestations Time Spent in Discharge Care*: greater than 30 min Quality Metrics Clinical Quality Measures [ No reported AMI, CVA or VTE this stay] Coding Level of Care Code 82288 Total time (in minutes) for Discharge: 35 Diagnoses Pneumonia J18.9 Hypoxemia R09.02 COPD with acute exacerbation J44.1 Stuttering F80.81
[2024-07-03] MEDS: lisinopril 20 mg Tablet PO (08:42)
[2024-07-03] MEDS: sertraline 50 mg Tablet 25 MG PO (08:42)
[2024-07-03] MEDS: aspirin 81 mg EC Tablet PO (08:42)
[2024-07-03] MEDS: azithromycin 250 mg Tablet 500 MG PO (08:42)
[2024-07-03] MEDS: predniSONE 20 mg Tablet 40 MG PO (08:42)
[2024-07-03] MEDS: levothyroxine 175 mcg Tablet PO (08:43)
--- NOTE | 2024-07-03 09:14 | PC.CHAP ---
Pastoral Care Encounter/Spiritual Assessment Type of Contact [] Declined pipe machine operator visit [] Patient/Family/Request visit [] Outpatient visit [] Follow-up visit [] Physician referral [] Code/Alert [x] Routine visit [] Staff referral [] Actively dying [] Patient sleeping [] Family support [] [] Out of room [] Palliative care [] [] Receiving care in room [] Pre-surgical visit [] Trauma [] Long length of stay [] ICU visit [x] Other:no prayer Personal Paster Relational/Emotional Strength [x] Patient feels connected with others/family/visitors/staff [] Distress [] Loneliness/isolation [] Abandonment Spirituality of Patient [X] Person of [place] [X] Attends [employer] of their [place] [X] Believes in Prayer [X] Reads Bible or Hinduism materials [] There are Spiritual issues to be addressed Medicine Worker Interventions [] Prayer [X] Active listening [X] Non-anxious presence [] Spiritual/emotional support [] Crisis/trauma care [] Spiritual counseling [] Bereavement support [] Provided bereavement packet [] Provided Bible/devotional materials [] Provided toy/stuffed animal, coloring book to patient or family member [] Provided Communion [] Anointing/[place] [] Salvation [] Completed spiritual assessment [] Other: Impact on Illness or Injury [] Angry [] Fearful [] Anxious [] Often cries [] Exhaustion [] Unable to work [] Unable to attend anabaptism [] Unable to walk/stand [] Unable to read [] Unable to drive [] Unable to eat/drink [] Unable to sleep [] Unable to be with family [] Patient intubated [] Other: Summary ASSOCIATE PROGRAMMER PRAYED WITH HIM Time spent with patient 10 MIN
== END 2024-07-03 10:44 | disposition home or self-care (01) | DRG 190 ==
LOC: ER 10:45 → MEDSURG 11:43
PROVIDERS: Admitting Provider Internal Medicine; Emergency Provider Family Medicine; PCP Family Medicine; Visit Provider Internal Medicine
DX: J44.0 Chronic obstructive pulmonary disease with (acute) lower respiratory infection (principal); J18.9 Pneumonia, unspecified organism; J44.1 Chronic obstructive pulmonary disease with (acute) exacerbation; R09.02 Hypoxemia; F41.9 Anxiety disorder, unspecified; R47.82 Fluency disorder in conditions classified elsewhere; I10 Essential (primary) hypertension; E03.9 Hypothyroidism, unspecified; F32.A Depression, unspecified; F03.90 Unspecified dementia, unspecified severity, without behavioral disturbance, psychotic disturbance, mood disturbance, and anxiety; Z87.891 Personal history of nicotine dependence
CPT/HCPCS: 0241U; 36415; 36600; 70450; 71045; 80048; 80051; 80053; 81001; 82330; 82550; 82805; 83605; 83735; 83880; 84443; 84484; 85025; 87040; 87086; 92507; 92523; 92610; 93005; 94640; 96365; 96372; 96375; 97116; 97161; 99285; J0456; J0696; J1650; J7050; J7512; J7626; Q0144

== ENCOUNTER → 2024-07-07 09:54 | Outpatient (BNVA) | payer MEDICARE, SELFPAY | PROVIDERS: PCP Family Medicine; Referring Provider Family Medicine; Visit Provider Specialist | DX: I63.9 Cerebral infarction, unspecified (principal); F80.81 Childhood onset fluency disorder; F32.9 Major depressive disorder, single episode, unspecified | CPT/HCPCS: 36415; 82607; 83520; 85651; 99204; 99205 ==

== ENCOUNTER → 2024-09-08 14:08 | Outpatient (BNVA) | payer MEDICARE, SELFPAY | PROVIDERS: PCP Family Medicine; Visit Provider Family Medicine | DX: R50.9 Fever, unspecified (principal) | CPT/HCPCS: 87400; 87426 ==

== ENCOUNTER → 2025-07-06 10:27 | Outpatient (BNVA) | payer MEDICARE, SELFPAY | PROVIDERS: PCP Family Medicine; Visit Provider Family Medicine | DX: E89.0 Postprocedural hypothyroidism (principal); I10 Essential (primary) hypertension; E03.9 Hypothyroidism, unspecified | CPT/HCPCS: 80053; 84443; 85025 ==